=== PATIENT | male | born 1955 | race African-American/Black ===

== ENCOUNTER 2021-03-19 13:09 | Inpatient (IN) | payer MEDICARE ==
[~2021-03-19] VITALS: Ht 180.3 cm; Wt 91.3 kg
[2021-03-19 14:17] LABS: BASOPHILS % 0.7 % (0.0-2.0); EOSINOPHILS % 4.3 % (0.0-5.0); HEMATOCRIT. 45.5 % (42.0-52.0); HEMOGLOBIN. 14.6 g/dL (14.0-18.0); LYMPHOCYTES % 24.1 % (20.0-50.0); MEAN CORPUSCULAR HEMOGLOBIN 25.8 pg (28.0-32.0); MEAN CORPUSCULAR VOLUME 80.2 fL (80.0-94.0); MEAN PLATELET VOLUME 7.9 fl (7.4-10.4); MONOCYTES % 7.8 % (2.0-8.0); NEUTROPHILS % 63.1 % (40.0-76.0); PLATELET 229 x1000/uL (130-400); RED BLOOD CELL COUNT 5.68 mill/uL (4.7-6.1); RED CELL DISTRIBUTION WIDTH 15.2 % (11.6-14.6)
[2021-03-19 14:32] LABS: CHLORIDE 113 mEq/L (98-107)
[2021-03-19 15:44] LABS: CHLORIDE 111 mEq/L (98-107)
[2021-03-19] MEDS ORDERED: CEFTRIAXONE 1 G PREMIX 50 ML IV ONE (15:45)
[2021-03-19] MEDS ORDERED: VANCOMYCIN 1 G PREMIX 200 ML IV SCH (15:45)
[2021-03-19 22:30] VITALS: BP 117/78
[2021-03-19] MEDS ORDERED: AMLO10TA80 MT (22:46)
[2021-03-19] MEDS ORDERED: ATOR10TA69 MT (22:49)
[2021-03-19] MEDS ORDERED: LORA10TA7 MT (22:49)
[2021-03-19] MEDS ORDERED: FAMO20TA8 MT (22:49)
[2021-03-19] MEDS ORDERED: ALBU6.7H9 INH (22:49)
[2021-03-19] MEDS ORDERED: [UNRECOGNIZED DRUG - OTHER] PO (22:50)
[2021-03-19] MEDS ORDERED: LORATADINE 10MG TABLET PO PRN (23:00)
[2021-03-19] MEDS ORDERED: ACETAMINOPHEN 325MG TABLET PO PRN (23:00)
[2021-03-19] MEDS ORDERED: IPRATROPIUM/ALBUTEROL 0.5-3(2.5)MG/3ML NEB HHN PRN (23:00)
[2021-03-20] VITALS: BP 124/85
[2021-03-20] MEDS ORDERED: AZITHROMYCIN 500 MG in DEXT 5% WATER 250 ML IV NR
[2021-03-20 04:00] VITALS: BP 116/75
[2021-03-20] MEDS: IPRATROPIUM/ALBUTEROL 0.5-3(2.5)MG/3ML NEB HHN SCH ×4 (08:40→21:10)
[2021-03-20] MEDS: ENOXAPARIN 30MG/0.3ML SYR SUBCUT SCH ×2 (08:56→21:03)
[2021-03-20] MEDS: FAMOTIDINE 20MG TABLET PO SCH ×2 (08:56→21:02)
[2021-03-20] MEDS: AMLODIPINE 10MG TABLET PO SCH (10:13)
[2021-03-20] MEDS ORDERED: IOHEXOL-300 50 ML BOTTLE IV ONE (11:33)
[2021-03-20] MEDS: CEFTRIAXONE 1,000 MG in DEXTROSE 5% WATER 50 ML IV SCH (15:27)
[2021-03-20] MEDS ORDERED: IOHEXOL-350 100 ML BOTTLE ONE (17:38)
[2021-03-20 20:00] VITALS: BP 110/78
[2021-03-20] MEDS ORDERED: AZITHROMYCIN 500 MG in DEXT 5% WATER 250 ML IV SCH (20:00)
[2021-03-20] MEDS ORDERED: ATORVASTATIN CALCIUM 20MG TABLET PO SCH (21:00)
[2021-03-20] MEDS ORDERED: BUDESONIDE 0.5MG/2ML NEB HHN SCH (21:30)
[2021-03-21] VITALS: BP 105/66
[2021-03-21 04:00] VITALS: BP 110/77
[2021-03-21 08:00] VITALS: BP 126/84
[2021-03-21] MEDS: IPRATROPIUM/ALBUTEROL 0.5-3(2.5)MG/3ML NEB HHN SCH ×3 (08:17→16:31)
[2021-03-21] MEDS: FAMOTIDINE 20MG TABLET PO SCH (08:38)
[2021-03-21] MEDS: AMLODIPINE 10MG TABLET PO SCH (08:38)
[2021-03-21] MEDS: ENOXAPARIN 30MG/0.3ML SYR SUBCUT SCH (08:40)
[2021-03-21] MEDS ORDERED: FLUTICASONE PROPIONATE 50MCG/SPRAY BOTTLE BOTHNSTRLS SCH (09:00)
[2021-03-21] MEDS ORDERED: GUAIFENESIN 600MG ER TABLET PO SCH (09:00)
[2021-03-21 12:00] VITALS: BP 124/80
[2021-03-21] MEDS ORDERED: LEVO500T89 MT (14:06)
[2021-03-21] MEDS ORDERED: IPRA3AMP9 NEB (14:06)
[2021-03-21] MEDS: CEFTRIAXONE 1,000 MG in DEXTROSE 5% WATER 50 ML IV SCH (15:26)
[2021-03-21 15:45] VITALS: BP 118/83
[2021-03-21 16:00] VITALS: BP 118/83
== END 2021-03-21 16:55 | disposition home or self-care (01) | DRG 193 ==
LOC: ER 13:09 → EDBEDREQ 18:26 → EDBEDREQTM 18:26 → ENRESERV 21:00 → 7EST 22:44
PROVIDERS: ADMIT Internal Medicine; ATTEND Internal Medicine
DX: J18.9 Pneumonia, unspecified organism (principal); J96.00 Acute respiratory failure, unspecified whether with hypoxia or hypercapnia; J44.0 Chronic obstructive pulmonary disease with (acute) lower respiratory infection; E44.1 Mild protein-calorie malnutrition; J98.11 Atelectasis; I10 Essential (primary) hypertension; E78.5 Hyperlipidemia, unspecified; E87.8 Other disorders of electrolyte and fluid balance, not elsewhere classified; J30.9 Allergic rhinitis, unspecified; Z20.822 Contact with and (suspected) exposure to COVID-19; Z60.2 Problems related to living alone; Z86.14 Personal history of Methicillin resistant Staphylococcus aureus infection; Z87.01 Personal history of pneumonia (recurrent); Z87.891 Personal history of nicotine dependence; Z68.28 Body mass index [BMI] 28.0-28.9, adult; Z79.899 Other long term (current) drug therapy
CPT/HCPCS: 36415; 71045; 71275; 80053; 83605; 83880; 84145; 84484; 85025; 85379; 87426; 93005; 93306; 94640; 99285; J0456; J0696; J1650; J3370; J7040; J7060; J7626; Q9967

== ENCOUNTER 2023-04-13 09:06 | Emergency (ER) | payer OTHER, MEDICARE ==
[~2023-04-13] VITALS: Ht 180.3 cm; Wt 81.0 kg
[~2023-04-13 09:06] MED LIST: ALBU6.7H3 INH; AMLO10TA80 MT; ATOR10TA69 MT; FAMO20TA8 MT; IPRA3AMP9 NEB; LEVO-65 MT; LORA10TA7 MT; [UNRECOGNIZED DRUG - OTHER] PO
[2023-04-13 09:12] VITALS: BP 134/88; PULSE 78; RESP 20; TEMP 98.3; O2SAT 96
== END 2023-04-13 10:07 | disposition home or self-care (01) ==
LOC: ER 09:06
DX: L70.9 Acne, unspecified (principal); J44.9 Chronic obstructive pulmonary disease, unspecified; I10 Essential (primary) hypertension; Z87.01 Personal history of pneumonia (recurrent); Z79.899 Other long term (current) drug therapy
CPT/HCPCS: 99281

== ENCOUNTER 2023-04-27 09:45 | Emergency (ER) | payer OTHER, MEDICARE ==
[~2023-04-27] VITALS: Ht 180.3 cm; Wt 79.0 kg
[2023-04-27 09:55] VITALS: BP 136/83; PULSE 92; RESP 20; TEMP 98.1; O2SAT 96
[2023-04-27] MEDS ORDERED: CEPH500T MT (10:38)
== END 2023-04-27 10:45 | disposition home or self-care (01) ==
LOC: ER 09:45
DX: L53.9 Erythematous condition, unspecified (principal); J44.9 Chronic obstructive pulmonary disease, unspecified; I10 Essential (primary) hypertension; Z87.01 Personal history of pneumonia (recurrent); Z79.899 Other long term (current) drug therapy
CPT/HCPCS: 99283

== ENCOUNTER 2024-04-13 08:32 | Emergency (ER) | payer MEDICARE, OTHER ==
[~2024-04-13] VITALS: Ht 180.3 cm; Wt 90.7 kg
[~2024-04-13 08:32] MED LIST changes: +CEPH500T MT
[2024-04-13 08:38] VITALS: PULSE 103; O2SAT 99
[2024-04-13 08:46] VITALS: BP 155/86; RESP 16; TEMP 98.3; O2SAT 96
[2024-04-13] MEDS ORDERED: LINE600T14 MT (10:34)
== END 2024-04-13 10:42 | disposition home or self-care (01) ==
LOC: ER 08:32
DX: L02.414 Cutaneous abscess of left upper limb (principal); I10 Essential (primary) hypertension; J44.9 Chronic obstructive pulmonary disease, unspecified; Z79.899 Other long term (current) drug therapy
CPT/HCPCS: 99283